=== PATIENT | male | born 1985 | race Caucasian/White ===

== ENCOUNTER 2017-09-26 09:44 | Emergency (ER) | payer MEDICAID ==
[2017-09-26 09:51] VITALS: BP 142/95
--- NOTE | 2017-09-26 10:09 | EDPHY ---
H & P Stated Complaint: etoh withdrawal/not sleeping last drink 0200 Source: Patient Exam Limitations: No limitations - Personal History Current Tetanus/Diphtheria Vaccine: Unsure - Medical/Surgical History Hx Asthma: No Hx Chronic Respiratory Disease: No Hx Diabetes: No Hx Cardiac Disease: No Hx Renal Disease: No Hx Cirrhosis: No Hx Alcoholism: Yes Hx HIV/AIDS: No Hx Splenectomy or Spleen Trauma: No Other PMH: pmh: depression/alcoholism - Social History Smoking Status: Former smoker Time Seen by Provider: 09/26/17 10:09 HPI/ROS: HPI: This is a 32-year-old male who presents with Chief Complaint: etoh withdrawal/not sleeping last drink 0200 Location: body Quality: Alcohol intoxication Duration: Daily Signs and Symptoms: no fever, no nausea, no vomiting, no hematemesis, no blood in stool, no abdominal bloating, no diarrhea, no back pain, no urinary symptoms , no testicular/groin pain, no indigestion, no chest pain, no shortness of breath Timing: Acute on chronic Severity: Moderate Context: Patient reports that he has a history of depression anxiety along with alcohol presents with requesting medication to detox at his mother's home. Patient reports that he normally drinks a 5th of whiskey daily. Last drink was at 2 am. Patient feels anxious, nauseous, sweating. Denies any audio/ visual/tactile disturbances/vomiting/abdominal cramping/abdominal pain/ diarrhea. Patient reports that his girlfriend recently broke up with him. Denies any suicidal ideation/homicidal ideation/hallucinations. Patient tried to detox in April and went to the [facility]. He reports that he had a very poor experience an and is up signing himself out. He has a primary care provider that he saw last week as well as an and a psychiatrist who prescribes his depression and anxiety medications. Reports compliance on Celexa, gabapentin, Naltrexone. Modifying Factors: Regular home medications Comment: ROS: see HPI Constitutional: No fever, no chills, no weight loss Eyes: No blurred vision Respiratory: No shortness of breath, no cough Cardiovascular: No chest pain, no palpitations Gastrointestinal: + nausea, no vomiting, no diarrhea, no hematemesis, no blood in stool Genitourinary: No dysuria, no blood in urine Extremities: No myalgias, no edema Neurologic: No weakness, no numbness Skin: No rashes, no petechiae Hematologic: No bruising, no bleeding MEDICAL/SURGICAL/SOCIAL HISTORY: Medical history: Depression, alcoholism Surgical history: Denies Social history: Former smoker. Employed. Family history noncontributory. CONSTITUTIONAL: Calm and cooperative, nontoxic-appearing young adult white male , awake and alert, no obvious distress HEENT: Atraumatic and normocephalic, PERRL, EOMI. Nares patent; no rhinorrhea; no nasal mucosal edema. Tympanic membranes clear. Oropharynx clear, no exudate and moist pink mucosa. Airway patent. No lymphadenopathy. No meningismus. Cardiovascular: Normal S1/S2, tachycardia, regular rhythm, without murmur rub or gallop. PULMONARY/CHEST: Symmetrical and nontender. Clear to auscultation bilaterally. Good air movement. No accessory muscle usage. ABDOMEN: Soft, nondistended, nontender, no rebound, no guarding, no peritoneal signs, no masses or organomegaly. No CVAT. EXTREMITIES: 2/2 pulses, strength 5/5, no deformities, no clubbing, no cyanosis or edema. NEUROLOGICAL: no focal neuro deficits. GCS 15. SKIN: Warm and dry, no erythema. no rash. Good capillary refill. PSYCH: Good eye contact, no flight of ideas, organized thought process, fair insight and judgment, no auditory and visual command hallucinations, no suicidal ideation with a plan, no homicidal ideation, not paranoid ([place]) Constitutional: Initial Vital Signs Temperature (C) 37.1 C 09/26/17 09:48 Heart Rate 106 H 09/26/17 09:48 Respiratory Rate 18 09/26/17 09:48 Blood Pressure 142/95 H 09/26/17 09:48 O2 Sat (%) 93 09/26/17 09:48 O2 Delivery Mode Room Air Allergies/Adverse Reactions: No Known Allergies Allergy (Verified 09/26/17 09:47) Home Medications: Medication Instructions Recorded Celexa 09/26/17 Gabapentin 09/26/17 Naltrexone 09/26/17 Ondansetron Odt [Zofran Odt 4 mg 4 mg PO Q4 PRN #12 tab 09/26/17 (*)] Remeron 09/26/17 chlordiazePOXIDE [Librium 25 mg 25 mg PO QID 3 Days cap 09/26/17 (*)] Medical Decision Making ED Course/Re-evaluation: Vital signs show mild tachycardia. CIWA = 3. Patient does not meet M1 hold or Detainer criteria. Patient was at the [facility] in April and refuses to return. His mother has contracted for his safety and will provide care and distribute medications to the patient while he is in her home. He has strong outpatient follow-up and compliance with medication/provider follow up No signs of delirium/alcohol withdrawal seizure/suicidal ideation/homicidal ideation Abdomen is soft and nontender; doubt surgical abdomen. Given a 3 day prescription for Librium to take every 6 hr as well as Zofran. This patient was seen under the supervision of my secondary supervising physician. I evaluated care for this patient independently. (Fadumo Fisher) Differential Diagnosis: Differential diagnosis includes but is not limited to alcohol withdrawal, alcohol intoxication, major depression, generalized anxiety disorder. (Fadumo Fisher) Other Provider: PHYSICIAN DOCUMENTATION: The patient was evaluated and managed by the Physician Reporting Coordinator. My co- signature indicates that I have reviewed this chart and I agree with the findings and plan of care as documented. I am the secondary supervising physician. (Jonathan Brower) Departure - Departure Disposition: Home, Routine, Self-Care Clinical Impression: Alcohol abuse Condition: Good Instructions: Abuse of Alcohol (ED), Alcohol Withdrawal (ED) Additional Instructions: Consume a minimum of 8-10 glasses of water or electrolyte fluid replacement drinks that include Gatorade, Powerade, Pedialyte. Eat a bland diet for the next 48 hours and then slowly advance as tolerated. Please slowly refrain from drinking alcohol. Take Librium 25 mg every 6 hr for alcohol withdrawal symptoms. Take Zofran every 4 hr as needed for nausea and vomiting. Please go to your mother's house for support and care during this alcohol detox process. If at any time you feel that you can not handle the symptoms, go to the [facility] detox center. Call 911 if you have thoughts of hurting or killing yourself or anyone else, or have any new or worsening symptoms that concern you. Referrals: [facility] Detox 24 Hours [Outside] - As per Instructions Prescriptions: chlordiazePOXIDE [Librium 25 mg (*)] 25 mg PO QID 3 Days cap Ondansetron Odt [Zofran Odt 4 mg (*)] 4 mg PO Q4 PRN #12 tab PRN Reason: Nausea/Vomiting, Use 1st
== END 2017-09-26 10:34 | disposition home or self-care (01) ==
DX: F10.129 Alcohol abuse with intoxication, unspecified (principal); Z87.891 Personal history of nicotine dependence

== ENCOUNTER 2017-12-26 11:46 | Emergency (ER) | payer MEDICAID, OTHER ==
[2017-12-26] MEDS ORDERED: NS 1,000 ML IV ONE (12:40)
[2017-12-26] MEDS ORDERED: ONDANSETRON 4 MG/2 ML VIAL IVP ONE (12:41)
[2017-12-26] MEDS ORDERED: LORazepam 2 MG/ML INJ IVP ONE (12:41)
--- NOTE | 2017-12-26 13:42 | EDPHY ---
H & P Stated Complaint: last drink 0800am . withdrawl symptoms. hx 1 seizure r/t Time Seen by Provider: 12/26/17 12:40 HPI/ROS: CHIEF COMPLAINT: Alcohol withdrawal HISTORY OF PRESENT ILLNESS: 32-year-old male with alcoholism presents with alcohol withdrawal. He is scheduled to go to [facility] tomorrow morning for intake for inpatient treatment of alcohol withdrawal. However, he stopped drinking early this morning. When he awoke later this morning he experienced tremulousness, nausea and anxiety. History of prior alcohol withdrawal seizures and he is concerned that he may have a seizure. No recent illness or injury. REVIEW OF SYSTEMS: complete 10 point ROS negative except at noted in the HPI - Personal History Current Tetanus/Diphtheria Vaccine: Unsure Current Tetanus Diphtheria and Acellular Pertussis (TDAP): Unsure - Medical/Surgical History Hx Asthma: No Hx Chronic Respiratory Disease: No Hx Diabetes: No Hx Cardiac Disease: No Hx Renal Disease: No Hx Cirrhosis: No Hx Alcoholism: Yes Hx HIV/AIDS: No Hx Splenectomy or Spleen Trauma: No Other PMH: pmh: depression/alcoholism - Social History Smoking Status: Light smoker - Physical Exam Exam: General Appearance: Alert, pleasant and calm, mild resting tremor Eyes: Pupils equal and round, no conjunctival pallor or injection ENT, Mouth: Mucous membranes moist Neck: Normal inspection Respiratory: Lungs are clear to auscultation Cardiovascular: Regular rate and rhythm Gastrointestinal: Abdomen is soft and nontender Neurological: A&O, nonfocal exam Skin: Warm and dry Extremities: Normal inspection Psychiatric: Mood and affect normal Constitutional: Initial Vital Signs Temperature (C) 37.1 C 12/26/17 11:49 Heart Rate 117 H 12/26/17 11:49 Respiratory Rate 22 H 12/26/17 11:49 Blood Pressure 139/96 H 12/26/17 11:49 O2 Sat (%) 92 12/26/17 11:49 O2 Delivery Mode Room Air O2 (L/minute) 2 Allergies/Adverse Reactions: No Known Allergies Allergy (Verified 12/26/17 11:52) Home Medications: Medication Instructions Recorded Celexa 09/26/17 Gabapentin 09/26/17 Naltrexone 09/26/17 Ondansetron Odt [Zofran Odt 4 mg 4 mg PO Q4 PRN #12 tab 09/26/17 (*)] Remeron 09/26/17 chlordiazePOXIDE [Librium 25 mg 25 mg PO QID 3 Days cap 09/26/17 (*)] Ondansetron Odt [Zofran Odt 4 mg 4 mg PO Q4 PRN #6 tab 12/26/17 (*)] chlordiazePOXIDE [Librium 25 mg 1 - 2 cap PO Q4 PRN #8 cap 12/26/17 (*)] Medical Decision Making ED Course/Re-evaluation: IV normal saline 1 L, Zofran 4 mg IV and Ativan 1 mg IV given. Patient feels much better after these medications. The anxiety, nausea and tremulousness have resolved. I wrote a prescription for Librium to help him get through the next 24 hr. He plans to follow up at [facility] as planned. - Data Points Medications Given: Discontinued Medications Sodium Chloride (Ns) 1,000 mls @ 0 mls/hr IV EDNOW ONE; Wide Open PRN Reason: Protocol Stop: 12/26/17 12:41 Last Admin: 12/26/17 12:48 Dose: 1,000 mls Lorazepam (Ativan Injection) 1 mg IVP EDNOW ONE Stop: 12/26/17 12:42 Last Admin: 12/26/17 12:51 Dose: 1 mg Ondansetron HCl (Zofran) 4 mg IVP EDNOW ONE Stop: 12/26/17 12:42 Last Admin: 12/26/17 12:50 Dose: 4 mg Departure - Departure Disposition: Home, Routine, Self-Care Clinical Impression: Alcohol withdrawal Qualifiers: Complication of substance-induced condition: uncomplicated Qualified Code(s): F10.230 - Alcohol dependence with withdrawal, uncomplicated Condition: Good Instructions: Chlordiazepoxide (By mouth), Alcohol Withdrawal (ED) Additional Instructions: Go to [facility] tomorrow morning as planned. Return with worsening symptoms or any concerns. Referrals: FAUSTINO SANCHEZ [Primary Care Provider] - As per Instructions Prescriptions: chlordiazePOXIDE [Librium 25 mg (*)] 1 - 2 cap PO Q4 PRN #8 cap PRN Reason: For Anxiety/Agitation/Insomnia Ondansetron Odt [Zofran Odt 4 mg (*)] 4 mg PO Q4 PRN #6 tab PRN Reason: Nausea
[2017-12-26 13:52] VITALS: BP 136/89
--- NOTE | 2017-12-26 18:01 | ASDISCHSUM ---
Discharge Information Plan Status:Substance Abuse Referrals Medically Cleared to Leave: Discharge Date:12/26/2017 01:50 PM CM D/C Disposition:Home, Routine, Self-Care ADT D/C Disposition:Home, Routine, Self-Care Projected Discharge Date:12/26/2017 01:50 PM Transportation at D/C:None or Unknown Discharge Delay Reason: Follow-Up Date:12/26/2017 01:50 PM Discharge Slot: Final Diagnosis: Placement Information Patient Contact Information Contact Name:MAURA Relationship:Mother Address: City: [facility] Phone: [facility] Code: Email: Financial Information Financial Class:Medicaid Primary Plan Desc:[employer] CHAIR Primary Plan Number:[id number] Secondary Plan Desc: Secondary Plan Number: Assessment Information Intervention Information
== END 2017-12-26 13:50 | disposition home or self-care (01) ==
DX: F10.230 Alcohol dependence with withdrawal, uncomplicated (principal); F17.200 Nicotine dependence, unspecified, uncomplicated; E86.9 Volume depletion, unspecified
CPT/HCPCS: 96374; J2060; J2405